=== PATIENT | male | born 1965 | race Two or more races ===

== ENCOUNTER 2017-02-18 19:32 | Emergency (ER) | payer OTHER ==
[~2017-02-18] VITALS: Ht 172.7 cm; Wt 108.9 kg
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
--- NOTE | 2017-02-18 20:08 | NUR ---
Pt to CT via w/c
--- NOTE | 2017-02-18 20:16 | NUR ---
Pt returned from CT via w/c. Pt resting in position of comfort for self, requesting pain medication. MD aware. Awaiting further orders.
[2017-02-18] MEDS ORDERED: HYDROCODONE/APAP 5-325MG TABLET PO ONE (20:45)
[2017-02-18] MEDS ORDERED: ONDANSETRON ODT 4 MG TAB.RAPDIS SL ONE (20:45)
--- NOTE | 2017-02-18 20:45 | NUR ---
Pt medicated for discomfort, will monitor for effects of medication.
[2017-02-18] MEDS ORDERED: ONDANSETRON ODT 4 MG TAB.RAPDIS ONE (20:54)
[2017-02-18] MEDS ORDERED: HYDROCODONE/APAP 5-325MG TABLET ONE (20:55)
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
[2017-02-18] MEDS ORDERED: KETOROLAC TROMETHAMINE 30 MG INJ IM ONE (22:15)
--- NOTE | 2017-02-18 22:18 | NUR ---
Pt was medicated for continued pain. Pt stable for discharge per MD. Pt given ACI. Pt verbalized understanding of dc instructions. Pt ambulated out of er with steady gait and ride home
[2017-02-18] MEDS ORDERED: KETOROLAC TROMETHAMINE 30 MG INJ ONE (22:19)
[2017-02-18 22:21] VITALS: BP 122/90
== END 2017-02-18 22:21 | disposition home or self-care (01) ==
LOC: ER 19:33
DX: F07.81 Postconcussional syndrome (principal); G44.309 Post-traumatic headache, unspecified, not intractable; S89.81XA Other specified injuries of right lower leg, initial encounter; S19.9XXA Unspecified injury of neck, initial encounter; Y08.89XA Assault by other specified means, initial encounter; Y93.I9 Activity, other involving external motion; Y99.8 Other external cause status; Y92.89 Other specified places as the place of occurrence of the external cause
CPT/HCPCS: 70450; 72040; 96372; 99284; A4663; J1885; Q0162

== ENCOUNTER 2022-03-09 14:41 | Emergency (ER) | payer OTHER ==
[~2022-03-09] VITALS: Ht 167.6 cm; Wt 104.3 kg
--- NOTE | 2022-03-09 14:52 | NUR ---
PT IS IN ROOM #4B. DR PARKER EVALUATED THE PT.
[2022-03-09 16:03] LABS: CREATININE 0.9 mg/dL (0.6-1.3); HEMATOCRIT 44.7 % (36.7-47.1); MEAN CORPUSCULAR HEMOGLOBIN 32.3 uug (23.8-33.4); MEAN CORPUSCULAR VOLUME 94.6 fL (73.0-96.2); PLATELET COUNT (AUTO) 253 K/uL (152-348); POTASSIUM 4.5 mmol/L (3.5-5.1)
[2022-03-09] MEDS ORDERED: IBUPROFEN 600 MG TABLET PO ONE (16:45)
[2022-03-09] MEDS ORDERED: HYDROCODONE/APAP 10-325 MG TABLET PO ONE (16:45)
[2022-03-09] MEDS ORDERED: HYDROCODONE/APAP 10-325 MG TABLET ONE (17:11)
[2022-03-09] MEDS ORDERED: IBUPROFEN 600 MG TABLET ONE (17:11)
[2022-03-09] MEDS ORDERED: IBUP-1955 PO (17:36)
[2022-03-09] MEDS ORDERED: TRAM50TA2 PO (17:36)
--- NOTE | 2022-03-09 17:50 | NUR ---
PT WAS D/C'd TO HOME . D/C INSTRUCTIONS GIVEN TO THE PT BY DR PARKER.
[2022-03-09 17:54] VITALS: BP 139/84
== END 2022-03-09 17:55 | disposition home or self-care (01) ==
LOC: ER 14:45
DX: R07.89 Other chest pain (principal); R94.31 Abnormal electrocardiogram [ECG] [EKG]; R73.9 Hyperglycemia, unspecified
CPT/HCPCS: 36415; 71101; 84484; 85025; 93005; A4663

== ENCOUNTER 2022-11-08 22:11 | Emergency (ER) | payer OTHER ==
[~2022-11-08] VITALS: Ht 170.2 cm; Wt 104.3 kg
[~2022-11-08 22:11] MED LIST: IBUP-1955 PO; TRAM50TA2 PO
[2022-11-08] MEDS ORDERED: HYDROMORPHONE 1 MG/1 ML DISP.SYRIN IV ONE (22:30)
[2022-11-08] MEDS ORDERED: PROCHLORPERAZINE EDISYLATE 10 MG/2 ML VIAL IV ONE (22:30)
[2022-11-08 22:38] LABS: HEMATOCRIT 32.1 % (36.7-47.1); MEAN CORPUSCULAR HEMOGLOBIN 31.9 uug (23.8-33.4); MEAN CORPUSCULAR VOLUME 92.7 fL (73.0-96.2); PLATELET COUNT (AUTO) 302 K/uL (152-348)
[2022-11-08 22:47] LABS: CARBON DIOXIDE 30 mmol/L (21-32); CHLORIDE 100 mmol/L (98-107); CREATININE 0.8 mg/dL (0.6-1.3); GLUCOSE 134 mg/dL (74-106); POTASSIUM 3.5 mmol/L (3.5-5.1); UREA NITROGEN, BLOOD 18 mg/dL (7-18)
[2022-11-08] MEDS ORDERED: HYDROMORPHONE 1 MG/1 ML DISP.SYRIN ONE (22:59)
[2022-11-08] MEDS ORDERED: PROCHLORPERAZINE EDISYLATE 10 MG/2 ML VIAL ONE (22:59)
[2022-11-08 23:01] LABS: ALANINE AMINOTRANSFERASE 42 U/L (16-63); ALKALINE PHOSPHATASE 116 U/L (50-136); ASPARTATE AMINOTRANSFERASE 26 U/L (15-37); BILIRUBIN,DIRECT 0.1 mg/dL (0.0-0.2); BILIRUBIN,TOTAL 0.3 mg/dL (0.2-1.0); TOTAL PROTEIN, SERUM 6.5 g/dL (6.4-8.2)
--- NOTE | 2022-11-09 00:01 | NUR ---
Patient resting comfortably in bed. No signs of distress noted.
[2022-11-09] MEDS ORDERED: IOHEXOL 350 100 ML INFUS..BTL ONE (00:24)
[2022-11-09] MEDS ORDERED: IV NORMAL SALINE 250 ML IV ONE (00:24)
--- NOTE | 2022-11-09 00:56 | NUR ---
Patient signed consent form for CTA chest (angio)
[2022-11-09] MEDS ORDERED: BLOO-1730 MC (03:14)
[2022-11-09] MEDS ORDERED: FURO-152 PO (03:14)
--- NOTE | 2022-11-09 03:26 | NUR ---
Patient given incentive spirometer per Dr. Ozuna's order.
[2022-11-09 06:08] VITALS: BP 125/75
--- NOTE | 2022-11-09 06:08 | NUR ---
Patient discharged to home in stable condition. Written and verbal after care instructions given. Patient verbalizes understanding of instructions. Stressed follow up or return to ER for worsening s/s.
== END 2022-11-09 06:08 | disposition home or self-care (01) ==
LOC: ER 22:11
DX: R07.89 Other chest pain (principal); I50.9 Heart failure, unspecified; E11.9 Type 2 diabetes mellitus without complications; J90 Pleural effusion, not elsewhere classified; E66.9 Obesity, unspecified; Z68.30 Body mass index [BMI] 30.0-30.9, adult; Z79.1 Long term (current) use of non-steroidal anti-inflammatories (NSAID); Z79.899 Other long term (current) drug therapy
CPT/HCPCS: 99291; 96374; 96375; 80076; 80048; 83880; 83735; 85025; 85379; 84484; 36415; 93005; 71045; 71275; J0780; J1170; Q9967; A4663

== ENCOUNTER → 2024-11-08 | Emergency (ER) | payer OTHER ==
[~2024-11-08] VITALS: Ht 170.2 cm; Wt 109.8 kg
[~2024-11-08] MED LIST changes: +BLOO-1730 MC; +FURO-152 PO
[2024-11-08 21:29] LABS: BASOPHILS # (AUTO) 0.1 K/UL (0.0-0.2); BASOPHILS % (AUTO) 1.1 % (0.0-2.0); EOSINOPHILS # (AUTO) 0.1 K/uL (0.0-0.7); EOSINOPHILS % (AUTO) 1.9 % (0.0-7.0); HEMATOCRIT 43.9 % (36.7-47.1); HEMOGLOBIN 15.5 g/dL (12.5-16.3); LYMPHOCYTES # (AUTO) 3.1 K/uL (0.8-4.8); LYMPHOCYTES % (AUTO) 41.4 % (20.5-51.5); MEAN CORPUSCULAR HEMOGLOBIN 33.4 uug (23.8-33.4); MEAN CORPUSCULAR HGB CONC 35 g/dL (32.5-36.3); MEAN CORPUSCULAR VOLUME 94.5 fL (73.0-96.2); MONOCYTES # (AUTO) 0.5 K/uL (0.1-1.30); MONOCYTES % (AUTO) 7.3 % (0.0-11.0); NEUTROPHILS # (AUTO) 3.6 K/uL (1.8-8.9); NEUTROPHILS % (AUTO) 48.3 % (38.5-71.5); PLATELET COUNT (AUTO) 187 K/uL (152-348); RED BLOOD CELL COUNT(AUTO) 4.65 MIL/uL (4.06-5.63); RED CELL DISTRIBUTION WIDTH 13.2 % (12.1-16.2); WHITE BLOOD COUNT (AUTO) 7.4 K/uL (3.6-10.2)
[2024-11-08 21:35] LABS: DIFFERENTIAL COMMENT 1
[2024-11-08 21:40] LABS: CALCIUM 9.5 mg/dL (8.5-10.1); CARBON DIOXIDE 29 mmol/L (21-32); CHLORIDE 103 mmol/L (98-107); CREATININE 0.9 mg/dL (0.6-1.3); GLUCOSE 165 mg/dL (74-106); POTASSIUM 3.7 mmol/L (3.5-5.1); SODIUM SERUM 140 mmol/L (136-145); UREA NITROGEN, BLOOD 16 mg/dL (7-18)
[2024-11-08 21:52] LABS: ALANINE AMINOTRANSFERASE 47 U/L (16-63); ALBUMIN 3.6 g/dL (3.4-5.0); ALKALINE PHOSPHATASE 115 U/L (50-136); ASPARTATE AMINOTRANSFERASE 24 U/L (15-37); BILIRUBIN,DIRECT 0.1 mg/dL (0.0-0.2); BILIRUBIN,TOTAL 0.4 mg/dL (0.2-1.0); TOTAL PROTEIN, SERUM 7.6 g/dL (6.4-8.2)
[2024-11-08 22:15] LABS: *BILIRUBIN,URIN NEGATIVE (NEGATIVE); *BLOOD, URINE NEGATIVE (NEGATIVE); *CLARITY,URINE CLEAR (CLEAR); *COLOR,URINE YELLOW (YELLOW); *KETONES,URINE NEGATIVE (NEGATIVE); *PROTEIN,URINE NEGATIVE (NEGATIVE); *UROBILINOGEN,URINE 0.2 E.U./dl (NORMAL); LEUKOCYTE ESTERASE ,URINE NEGATIVE (NEGATIVE); NITRITE, URINE NEGATIVE (NEGATIVE); UGLUCOSE NEGATIVE (NEGATIVE)
[2024-11-08 22:22] LABS: *AMPHETAMINE, URINE NEGATIVE (NEGATIVE); *BARBITURATE, URINE NEGATIVE (NEGATIVE); *BENZODIAZEPINE, URINE NEGATIVE (NEGATIVE); *CANNABINOID, URINE NEGATIVE (NEGATIVE); *COCCAINE, URINE NEGATIVE (NEGATIVE); *OPIATE, URINE NEGATIVE (NEGATIVE); *PHENCYCLIDINE SCREEN,URINE NEGATIVE (NEGATIVE); FENTANYL, URINE NEGATIVE (NEGATIVE)
[2024-11-08 22:57] VITALS: BP 141/99; O2SAT 97
== END | disposition home or self-care (01) ==
LOC: ER 20:20
DX: R42 Dizziness and giddiness (principal); R06.00 Dyspnea, unspecified; R07.9 Chest pain, unspecified; E11.9 Type 2 diabetes mellitus without complications; I10 Essential (primary) hypertension; Z79.1 Long term (current) use of non-steroidal anti-inflammatories (NSAID); Z79.899 Other long term (current) drug therapy; Z86.79 Personal history of other diseases of the circulatory system; Z60.2 Problems related to living alone
CPT/HCPCS: 36415; 71045; 84484; 85025; A4606; A4663